=== PATIENT | male | born 1975 | race Caucasian/White ===

== ENCOUNTER 2016-11-15 15:44 | Emergency (ER) | payer OTHER ==
[2016-11-15 15:45] VITALS: BP 125/69; PULSE 99; RESP 18; TEMP 98.7; O2SAT 99
--- NOTE | 2016-11-15 16:27 | PD ---
HPI Chief Complaint: Psychiatric Symptoms Time Seen by Provider: 16:19 Travel History International Travel<30 days: No Contact w/Intl Traveler<30days: No History of Present Illness HPI Patient is a 41-year-old male brought into the emergency Department under Ma act due to suicidal ideations. Patient allegedly asked the girl on the street if she had a gun so he could shoot himself. Patient states he's been homeless recently due to Social Security not giving him his $5000. Patient states his is on social security due to dementia which he reports he does not have. Patient admits to drinking a third of a bottle wine today. He also reports being Bennett Nataly's cousin. 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 He denies any physical complaints, he does report being a type I diabetic. He states that he was using Humulin 2 cc every 3 hours. He has no physical complaints at this time. [facility] Past Medical History Diabetes: Yes (1) Herniated Disk: Yes Social History Alcohol Use: Yes Tobacco Use: Yes Substance Use: Yes Allergies-Medications (Allergen,Severity, Reaction): Coded Allergies: No Known Allergies (Unverified , 11/15/16) Reported Meds & Prescriptions Reported Meds & Active Scripts Active Reported Tivicay (Dolutegravir Sodium) 50 Mg Tab 50 Mg PO DAILY Sertraline (Sertraline HCl) 100 Mg Tab 200 Mg PO DAILY Mepron Liq (Atovaquone) 750 Mg/5 Ml Susp 1,500 Mg PO DAILY Take with food. Descovy (Emtricitabine-Tenofovir Alafenamide) 200-25 mg Tab 1 Tab PO DAILY Review of Systems Except as stated in HPI: all other systems reviewed are Neg Psychiatric: Positive: Suicidal Ideations, Substance Abuse Physical Exam Narrative GENERAL: Overweight, well-developed, alert and intoxicated appearing male, resting comfortably in no acute distress. SKIN: Focused skin assessment warm/dry. HEAD: Atraumatic. Normocephalic. EYES: Pupils equal and round. No scleral icterus. No injection or drainage. ENT: No nasal bleeding or discharge. Mucous membranes pink and moist. NECK: Trachea midline. No JVD. CARDIOVASCULAR: Regular rate and rhythm. No murmur appreciated. RESPIRATORY: No accessory muscle use. Clear to auscultation. Breath sounds equal bilaterally. GASTROINTESTINAL: Abdomen soft, non-tender, nondistended. Hepatic and splenic margins not palpable. MUSCULOSKELETAL: No obvious deformities. No clubbing. No cyanosis. No edema. NEUROLOGICAL: Awake and alert. No obvious cranial nerve deficits. Motor grossly within normal limits. Normal speech. PSYCHIATRIC: Appropriate mood and affect; insight and judgment normal. Data Data Last Documented VS Vital Signs Date Time Temp Pulse Resp B/P Pulse Ox O2 Delivery O2 Flow Rate FiO2 11/15/16 15:45 98.7 99 18 125/69 99 Orders Complete Blood Count With Diff (11/15/16 15:50) Comprehensive Metabolic Panel (11/15/16 15:50) Psych Screen (11/15/16 15:50) Drug Screen, Random Urine (11/15/16 15:50) Alcohol (Ethanol) (11/15/16 15:50) Salicylates (Aspirin) (11/15/16 15:50) Tylenol (Acetaminophen) (11/15/16 15:50) ^ Sitter (11/15/16 15:51) Urinalysis - C+S If Indicated (11/15/16 16:05) Diet 1800 Ada Cons Carb (11/15/16 Dinner) Nicotine 14 Mg Patch.24 Hr (Habitrol 14 (11/15/16 16:45) Sodium Chlor 0.9% 1000 Ml Inj (Ns 1000 M (11/15/16 17:30) Labs Laboratory Tests Test 11/15/16 16:27 White Blood Count 5.3 TH/MM3 Red Blood Count 5.17 MIL/MM3 Hemoglobin 15.5 GM/DL Hematocrit 44.3 % Mean Corpuscular Volume 85.6 FL Mean Corpuscular Hemoglobin 30.0 PG Mean Corpuscular Hemoglobin 35.0 % Concent Red Cell Distribution Width 13.7 % Platelet Count 167 TH/MM3 Mean Platelet Volume 8.1 FL Neutrophils (%) (Auto) 27.4 % Lymphocytes (%) (Auto) 56.1 % Monocytes (%) (Auto) 15.9 % Eosinophils (%) (Auto) 0.3 % Basophils (%) (Auto) 0.3 % Neutrophils # (Auto) 1.5 TH/MM3 Lymphocytes # (Auto) 3.0 TH/MM3 Monocytes # (Auto) 0.8 TH/MM3 Eosinophils # (Auto) 0.0 TH/MM3 Basophils # (Auto) 0.0 TH/MM3 CBC Comment AUTO DIFF Urine Color YELLOW Urine Turbidity CLEAR Urine pH 5.5 Urine Specific [place] 1.021 Urine Protein TRACE mg/dL Urine Glucose (UA) NEG mg/dL Urine Ketones NEG mg/dL Urine Occult Blood NEG Urine Nitrite NEG Urine Bilirubin NEG Urine Urobilinogen 2.0 MG/DL Urine Leukocyte Esterase NEG Urine WBC 1 /hpf Urine Hyaline Casts 4 /lpf Urine Mucus FEW /lpf Microscopic Urinalysis Comment CULT NOT INDICATED Sodium Level 144 MEQ/L Potassium Level 3.8 MEQ/L Chloride Level 112 MEQ/L Carbon Dioxide Level 20.7 MEQ/L Anion Gap 11 MEQ/L Blood Urea Nitrogen 9 MG/DL Creatinine 1.38 MG/DL Estimat Glomerular Filtration 57 ML/MIN Rate Random Glucose 103 MG/DL Calcium Level 8.4 MG/DL Total Bilirubin 0.3 MG/DL Aspartate Amino Transf 20 U/L (AST/SGOT) Alanine Aminotransferase 31 U/L (ALT/SGPT) Alkaline Phosphatase 87 U/L Total Protein 7.7 GM/DL Albumin 3.8 GM/DL Salicylates Level 2.7 MG/DL Urine Opiates Screen NEG Acetaminophen Level LESS THAN 2.0 MCG/ML Urine Barbiturates Screen NEG Urine Amphetamines Screen POS Urine Benzodiazepines Screen NEG Urine Cocaine Screen NEG Urine Cannabinoids Screen POS Ethyl Alcohol Level 234 MG/DL MDM Medical Decision Making Medical Screen Exam Complete: Yes Emergency Medical Condition: Yes Interpretation(s) Laboratory Tests Test 11/15/16 16:27 White Blood Count 5.3 TH/MM3 Red Blood Count 5.17 MIL/MM3 Hemoglobin 15.5 GM/DL Hematocrit 44.3 % Mean Corpuscular Volume 85.6 FL Mean Corpuscular Hemoglobin 30.0 PG Mean Corpuscular Hemoglobin 35.0 % Concent Red Cell Distribution Width 13.7 % Platelet Count 167 TH/MM3 Mean Platelet Volume 8.1 FL Neutrophils (%) (Auto) 27.4 % Lymphocytes (%) (Auto) 56.1 % Monocytes (%) (Auto) 15.9 % Eosinophils (%) (Auto) 0.3 % Basophils (%) (Auto) 0.3 % Neutrophils # (Auto) 1.5 TH/MM3 Lymphocytes # (Auto) 3.0 TH/MM3 Monocytes # (Auto) 0.8 TH/MM3 Eosinophils # (Auto) 0.0 TH/MM3 Basophils # (Auto) 0.0 TH/MM3 CBC Comment AUTO DIFF Urine Color YELLOW Urine Turbidity CLEAR Urine pH 5.5 Urine Specific [place] 1.021 Urine Protein TRACE mg/dL Urine Glucose (UA) NEG mg/dL Urine Ketones NEG mg/dL Urine Occult Blood NEG Urine Nitrite NEG Urine Bilirubin NEG Urine Urobilinogen 2.0 MG/DL Urine Leukocyte Esterase NEG Urine WBC 1 /hpf Urine Hyaline Casts 4 /lpf Urine Mucus FEW /lpf Microscopic Urinalysis Comment CULT NOT INDICATED Sodium Level 144 MEQ/L Potassium Level 3.8 MEQ/L Chloride Level 112 MEQ/L Carbon Dioxide Level 20.7 MEQ/L Anion Gap 11 MEQ/L Blood Urea Nitrogen 9 MG/DL Creatinine 1.38 MG/DL Estimat Glomerular Filtration 57 ML/MIN Rate Random Glucose 103 MG/DL Calcium Level 8.4 MG/DL Total Bilirubin 0.3 MG/DL Aspartate Amino Transf 20 U/L (AST/SGOT) Alanine Aminotransferase 31 U/L (ALT/SGPT) Alkaline Phosphatase 87 U/L Total Protein 7.7 GM/DL Albumin 3.8 GM/DL Salicylates Level 2.7 MG/DL Urine Opiates Screen NEG Acetaminophen Level LESS THAN 2.0 MCG/ML Urine Barbiturates Screen NEG Urine Amphetamines Screen POS Urine Benzodiazepines Screen NEG Urine Cocaine Screen NEG Urine Cannabinoids Screen POS Ethyl Alcohol Level 234 MG/DL Differential Diagnosis Mood disorder versus substance abuse versus suicidal ideations versus homicidal ideations versus hyperglycemia versus Narrative Course Patient is a 41-year-old male brought in by the Police Department under [place] act for suicidal ideations. Patient appears intoxicated, he is alert, his thought processes random and all over the place. His vital signs are stable, labs ordered and pending. Reports being a type I diabetic on Humulin, blood glucose assessed at 196. Patient is resting comfortably in no acute distress. CBC is unremarkable Chemistry with slightly elevated creatinine of 1.38 otherwise unremarkable Urinalysis is unremarkable Alcohol level 234 Salicylate level 2.7 Acetaminophen 2.0 Urine drug screen is positive for amphetamine and marijuana Patient was given a meal tray, IV fluids. Patient will be allowed to sleep it off, he is medically clear for psychiatric evaluation at this time. Patient has demonstrated that he can ambulate safely in the emergency department. Diagnosis Primary Impression: Medical clearance for psychiatric admission Additional Impressions: Acute alcohol intoxication Qualified Code: F10.120 - Acute alcohol intoxication, uncomplicated Substance abuse Suicidal ideations Condition: Stable Marcelina Barriga [facility] November 15, 2016 16:27
[2016-11-15] MEDS ORDERED: NICOTINE 14 MG/24 HR PATCH T-DERMAL ONE (16:45)
[2016-11-15 16:49] LABS: AUTOMATED NEUTROPHIL # 1.5 TH/MM3 (1.8-7.7); BASOPHIL % 0.3 % (0.0-2.0); EOSINOPHIL % 0.3 % (0.0-4.0); HEMATOCRIT 44.3 % (39.0-51.0); LYMPH % 56.1 % (9.0-44.0); MEAN CELL VOLUME 85.6 FL (80.0-100.0); MONO % 15.9 % (0.0-8.0); NEUT % 27.4 % (16.0-70.0); PLATELET COUNT 167 TH/MM3 (150-450); RED BLOOD COUNT 5.17 MIL/MM3 (4.50-5.90); RED CELL DISTRIBUTION WIDTH 13.7 % (11.6-17.2); WHITE BLOOD COUNT 5.3 TH/MM3 (4.0-11.0)
[2016-11-15 17:00] LABS: HEMO FLAGS AUTO DIFF
[2016-11-15 17:03] LABS: AMPHETAMINE, URINE POS (NEG); BARBITURATES, URINE NEG (NEG); COCAINE, URINE NEG (NEG)
[2016-11-15 17:05] LABS: BLOOD, URINE NEG (NEG); COMMENT (UR) CULT NOT INDICATED; CULTURE IF INDICATED CULT NOT INDICATED; GLUCOSE,URINE NEG (NEG); HYALINE CAST, URINE 4 /lpf (RARE); KETONE, URINE NEG (NEG); MUCUS URINE FEW /lpf (OCC); NITRITE,URINE NEG (NEG); PH, URINE 5.5 (5.0-8.5); URINE COLOR YELLOW (YELLW/STRAW)
[2016-11-15 17:20] LABS: ANION GAP 11 MEQ/L (5-15)
[2016-11-15] MEDS ORDERED: DOLU1TAB PO (17:22)
[2016-11-15] MEDS ORDERED: SERT-129 PO (17:22)
[2016-11-15] MEDS ORDERED: EMTR1TAB4 PO (17:22)
[2016-11-15] MEDS ORDERED: ATOV750UDC PO (17:22)
[2016-11-15 17:23] LABS: ACETAMINOPHEN LESS THAN 2.0 MCG/ML (10.0-30.0); ALKALINE PHOSPHATASE 87 U/L (45-117); ALT (GPT) 31 U/L (12-78); AST (GOT) 20 U/L (15-37); BICARBONATE 20.7 MEQ/L (21.0-32.0); BLOOD UREA NITROGEN 9 MG/DL (7-18); CHLORIDE 112 MEQ/L (98-107); GLOMERULAR FILTRATION RATE 57 ML/MIN (>89); POTASSIUM 3.8 MEQ/L (3.5-5.1); SODIUM (NA) 144 MEQ/L (136-145); TOTAL BILIRUBIN ADULT 0.3 MG/DL (0.2-1.0)
[2016-11-15] MEDS ORDERED: SODIUM CHLOR 0.9% 1000 ML INJ 1,000 ML IV ONE (17:30)
[2016-11-15 19:02] LABS: SCAN/DIFF AUTO DIFF CONFIRMED
[2016-11-15 20:21] VITALS: BP 121/67; PULSE 96; RESP 16; O2SAT 95
== END 2016-11-15 22:11 ==
LOC: NEPD 15:44 → NEPJ 22:11
DX: Z02.89 Encounter for other administrative examinations (principal); F10.120 Alcohol abuse with intoxication, uncomplicated; F19.10 Other psychoactive substance abuse, uncomplicated; R45.851 Suicidal ideations; E10.9 Type 1 diabetes mellitus without complications; Z72.0 Tobacco use; Z79.4 Long term (current) use of insulin; Z87.39 Personal history of other diseases of the musculoskeletal system and connective tissue
CPT/HCPCS: 80053; 80307; 81001; 85025; 99285; J7030